=== PATIENT | male | born 1995 | race Two or more races ===

== ENCOUNTER 2019-08-08 12:43 | Emergency (ER) | payer MEDICAID ==
[~2019-08-08] VITALS: Ht 185.4 cm; Wt 101.6 kg
--- NOTE | 2019-08-08 12:48 | NUR ---
PT [id number], HOMELESS, C/O CHEST PAIN x 2 WEEKS NON RADIATING, WEAKNESS, BS 74, PT IS AAOX3, NOT IN RESPIRATORY DISTRESS, HOOKED TO MONITOR, KEPT RESTED AND COMFORTABLE, WILL CONTINUE TO MONITOR.
--- NOTE | 2019-08-08 13:36 | NUR ---
CARLI DERRICK BOAT CAPTAIN AT BEDSIDE FOR EVAL.
--- NOTE | 2019-08-08 13:50 | NUR ---
ER PHLEB AT BEDSIDE FOR BLOOD DRAW.
[2019-08-08 13:54] LABS: BASOPHILS # (AUTO) 0.1 /CMM (0.0-0.2); EOSINOPHILS % (AUTO) 5.9 % (0.0-6.0); HEMATOCRIT 45 % (39-51); HEMOGLOBIN 15.3 g/dL (13.5-17.5); LYMPHOCYTES # (AUTO) 2.3 /CMM (0.8-4.8); LYMPHOCYTES % (AUTO) 42.2 % (20.0-44.0); MEAN CORPUSCULAR HGB CONC 34 g/dl (31.0-36.0); MEAN CORPUSCULAR VOLUME 84 fL (80-96); MONOCYTES # (AUTO) 0.4 /CMM (0.1-1.30); MONOCYTES % (AUTO) 7.8 % (2.0-12.0); NEUTROPHILS # (AUTO) 2.4 /CMM (1.8-8.9); NEUTROPHILS % (AUTO) 43.1 % (43.0-81.0); PLATELET COUNT (AUTO) 295 /CMM (150-450); RED BLOOD CELL COUNT(AUTO) 5.37 MIL/uL (4.5-6.0); WHITE BLOOD COUNT (AUTO) 5.6 K/uL (4.3-11.0)
[2019-08-08] MEDS ORDERED: FAMOTIDINE (20 MG) 20 MG TABLET ONE (13:58)
[2019-08-08] MEDS ORDERED: FAMOTIDINE (20 MG) 20 MG TABLET PO ONE (14:00)
[2019-08-08 14:01] LABS: CALCIUM, SERUM 9.3 mg/dL (8.5-10.1); CREATININE 0.9 mg/dL (0.6-1.3); POTASSIUM 4.6 mmol/L (3.5-5.1)
--- NOTE | 2019-08-08 14:02 | NUR ---
URINE SPECIMEN COLLECTED AND SENT TO LAB.
[2019-08-08 14:05] LABS: APPEARANCE,URINE Clear (CLEAR); BILIRUBIN,URINE Negative (NEGATIVE); BLOOD, URINE Negative Ery/uL (NEGATIVE); COLOR,URINE Yellow (YELLOW); KETONES,URINE Negative (NEGATIVE); LEUKOCYTE ESTERASE ,URINE Negative (NEGATIVE); NITRITE, URINE Negative (NEGATIVE); PROTEIN,URINE Negative (NEGATIVE); UGLUCOSE Negative (NEGATIVE); UROBILINOGEN,URINE 0.2 EU/dL (0.2)
--- NOTE | 2019-08-08 15:23 | NUR ---
Komal evans in ED - 08/08/19 at 1524 by KATHI Patient discharged to home in stable condition. Written and verbal after care instructions given. Patient verbalizes understanding of instruction.
[2019-08-08 15:24] VITALS: BP 110/71
--- NOTE | 2019-08-08 15:24 | NUR ---
Patient given written and verbal discharge instructions. Patient verbalizes understanding of instructions. Patient is ambulatory with steady gait. Refuses offer of correction placement. Patient given list of available shelters in surrounding area.
== END 2019-08-08 15:26 | disposition home or self-care (01) ==
LOC: ER 12:45
DX: R53.1 Weakness (principal); R10.13 Epigastric pain; F31.9 Bipolar disorder, unspecified; E11.9 Type 2 diabetes mellitus without complications; F10.10 Alcohol abuse, uncomplicated; F15.10 Other stimulant abuse, uncomplicated; F12.10 Cannabis abuse, uncomplicated; Y90.9 Presence of alcohol in blood, level not specified; Z59.0 Homelessness; Z98.890 Other specified postprocedural states; Z88.1 Allergy status to other antibiotic agents; Z88.5 Allergy status to narcotic agent
CPT/HCPCS: 36415; 80048-TC; 81000-TC; 85025-TC

== ENCOUNTER 2021-02-18 11:37 | Emergency (ER) | payer OTHER ==
[~2021-02-18] VITALS: Ht 185.4 cm; Wt 90.7 kg
--- NOTE | 2021-02-18 13:31 | NUR ---
Patient a/ox4, breathing even and unlabored, no sob noted. Patient discharged to PD (in custody)in stable condition. Written and verbal after care instructions given. Patient verbalizes understanding of instruction.
[2021-02-18 13:32] VITALS: BP 152/91
== END 2021-02-18 13:33 ==
LOC: ER 11:42
DX: R05 Cough (principal); R06.00 Dyspnea, unspecified; L98.9 Disorder of the skin and subcutaneous tissue, unspecified; E11.9 Type 2 diabetes mellitus without complications; F32.9 Major depressive disorder, single episode, unspecified; Z98.890 Other specified postprocedural states; Z88.1 Allergy status to other antibiotic agents; Z88.8 Allergy status to other drugs, medicaments and biological substances; Z88.6 Allergy status to analgesic agent; Z59.0 Homelessness
CPT/HCPCS: 71045-TC

== ENCOUNTER 2025-07-31 11:04 | Emergency (ER) | payer OTHER ==
[~2025-07-31] VITALS: Ht 188 cm; Wt 104.3 kg
[2025-07-31 11:10] VITALS: TEMP 98
[2025-07-31] MEDS ORDERED: TDAP [DIPH/PERTUSSIS/TET] 0.5 ML VIAL IM ONE (11:27)
[2025-07-31] MEDS: TDAP [DIPH/PERTUSSIS/TET] 0.5 ML VIAL IM ONE (11:32)
[2025-07-31 11:40] VITALS: BP 144/79; O2SAT 97
== END 2025-07-31 11:41 | disposition home or self-care (01) ==
LOC: ER 11:07
DX: S01.81XA Laceration without foreign body of other part of head, initial encounter (principal); E11.9 Type 2 diabetes mellitus without complications; F12.90 Cannabis use, unspecified, uncomplicated; F31.9 Bipolar disorder, unspecified; Z59.00 Homelessness unspecified; Z88.0 Allergy status to penicillin; Z88.2 Allergy status to sulfonamides; Z88.5 Allergy status to narcotic agent; W06.XXXA Fall from bed, initial encounter; Y93.89 Activity, other specified; Y92.89 Other specified places as the place of occurrence of the external cause; Y99.9 Unspecified external cause status
CPT/HCPCS: 12011; 90471; 90715; 99283; A6403